=== PATIENT | female | born 1950 | race Caucasian/White ===

== ENCOUNTER 2020-06-19 04:29 | Emergency (ER) | payer MEDICARE, OTHER ==
[~2020-06-19] VITALS: Ht 167.6 cm; Wt 59.0 kg
[~2020-06-19 04:29] MED LIST: ALENDRONATE SOD70 MG PO; CARDIZEM CD240 MG PO; CLONAZEPAM 0.50.5 M1 PO; NIACIN 100MG T100 M1 PO; REQUIP 0.25 M0.25 MG PO; SINEMET 10-1001 EAC1 PO; TOPROL XL25 MG PO; VIT C-ROSE HIP500 MG PO
[2020-06-19] MEDS ORDERED: ASA81BEC PO (04:35)
[2020-06-19] MEDS ORDERED: ACIDOPHILUS1 EAC3 PO (04:35)
[2020-06-19] MEDS ORDERED: DILTIAZEM ER180 M2 PO (04:35)
[2020-06-19] MEDS ORDERED: COMTAN200 MG PO (04:36)
[2020-06-19] MEDS ORDERED: ESCITALOPRA5 MG/5 ML PO (04:36)
[2020-06-19] MEDS ORDERED: MELATONIN3 M1 PO (04:36)
[2020-06-19] MEDS ORDERED: MIRALAX119 GM PO (04:37)
[2020-06-19] MEDS ORDERED: ZANAFLEX2 M1 PO (04:37)
[2020-06-19] MEDS ORDERED: ONE-A-DAY WOMENS PO (04:37)
[2020-06-19] MEDS ORDERED: VITAMIN B-121000 MC2 SUBLING (04:38)
[2020-06-19] MEDS ORDERED: VITAMIN D31250 MCG PO (04:38)
[2020-06-19] MEDS ORDERED: MILK OF MA400 MG/5 M PO (04:39)
[2020-06-19] MEDS ORDERED: MAPAP325 MG PO (04:39)
[2020-06-19 04:48] LABS: URINE BILIRUBIN NEGATIVE (Negative); URINE BLOOD NEGATIVE (Negative); URINE CLARITY CLEAR; URINE COLOR DARK YELLOW; URINE GLUCOSE-RANDOM NEGATIVE (Negative); URINE KETONES NEGATIVE (Negative); URINE LEUKOCYTES-REFLEX NEGATIVE (Negative); URINE NITRITE-REFLEX NEGATIVE (Negative); URINE PROTEIN NEGATIVE (Negative); URINE UROBILINOGEN 0.2 E.U./dl (0.2-1.0)
[2020-06-19 05:17] LABS: ABSOLUTE EOSINOPHILS 0.1 thou/uL (0.0-0.7); ABSOLUTE LYMPHOCYTES 1.9 thou/uL (0.8-5.3); ABSOLUTE MONOCYTES 0.5 thou/uL (0.0-1.2); ABSOLUTE NEUTROPHILS 2.5 thou/uL (1.6-8.1); BASOPHILS 0.9 %; EOSINOPHILS 2.9 %; HEMATOCRIT 40.6 % (37.0-47.0); HEMOGLOBIN 13.4 gm/dL (12.0-15.0); LYMPHOCYTES 37.5 %; MCH 31.8 pg (26.0-34.0); MCV 96.2 fL (80.0-100.0); MPV 7.9 fl. (7.2-11.1); NUCLEATED RBCS 0 /100WBC; PLATELET COUNT* 198 thou/uL (150-400); POLYS 48.7 %; RBC 4.22 mil/uL (4.20-5.00); RDW-CV 14.2 % (10.5-14.5); WBC 5.2 thou/uL (4.0-11.0)
[2020-06-19 05:28] LABS: CALCIUM 9.1 mg/dL (8.5-10.1); CREATININE 0.8 mg/dL (0.6-1.3); POTASSIUM 4.2 mmol/L (3.5-5.1)
[2020-06-19 05:29] LABS: PROTIME 10.4 Seconds (9.20-11.50)
[2020-06-19 05:32] LABS: ALBUMIN 3.7 g/dL (3.4-5.0); MAGNESIUM 2.3 mg/dL (1.8-2.4); TOTAL BILIRUBIN 0.3 mg/dL (<0.1-1.0); TOTAL PROTEIN 6.8 g/dL (6.4-8.2)
[2020-06-19 06:50] VITALS: BP 144/74
--- NOTE | 2020-06-19 16:00 | EKG ---
[place] [address] ELECTROCARDIOGRAM REPORT Name: ARNIE MATAMOROS Room: [facility]#: [id number] Admission: 06/19/20 Attend Phys: Discharge: 06/19/20 Date of : 54 Date of Service: 06/19/20443 Report #: [id number] THIS REPORT FOR: //name// [facility] ED Test Date: 2020-06-19 Test Time: 04:44:19 Pat Name: ARNIE MATAMOROS Department: Room: Gender: F Mold Technician: : 1950 Requested By: Annemarie Hernandez Order Number: [id number] MD: Olegario Atkinson Measurements Intervals [place] Rate: 63 P: IN: QRS: 21 QRSD: 139 T: 39 QT: 431 QTc: 442 Interpretive Statements Sinus rhythm Low voltage throughout Baseline wander in lead(s) V3 No previous ECG available for comparison Electronically Signed On 06-19-2020 16:00:42 [employer] by Olegario Atkinson [email or web address] <ELECTRONICALLY SIGNED> By: Olegario Atkinson MD, [facility] 06/19/20 [facility] [place][note 2] [facility] 044 Olegario Atkinson MD, FACC /EPI
== END 2020-06-19 06:51 | disposition home or self-care (01) ==
LOC: M.ERS 04:29
PROVIDERS: Emergency Medicine
DX: M54.2 Cervicalgia (principal); Z20.828 Contact with and (suspected) exposure to other viral communicable diseases; M54.5 Low back pain; G25.81 Restless legs syndrome; Z79.899 Other long term (current) drug therapy; Z79.82 Long term (current) use of aspirin; Z86.73 Personal history of transient ischemic attack (TIA), and cerebral infarction without residual deficits; W06.XXXA Fall from bed, initial encounter; Y93.89 Activity, other specified; Y92.89 Other specified places as the place of occurrence of the external cause; Y99.9 Unspecified external cause status

== ENCOUNTER 2021-04-15 22:55 | Inpatient (IN) | payer MEDICARE, OTHER ==
[~2021-04-15] VITALS: Ht 165.1 cm; Wt 59.0 kg
[~2021-04-15 22:55] MED LIST changes: +ACIDOPHILUS1 EAC3 PO; +ASA81BEC PO; +COMTAN200 MG PO; +DILTIAZEM ER180 M2 PO; +ESCITALOPRA5 MG/5 ML PO; +MAPAP325 MG PO; +MELATONIN3 M1 PO; +MILK OF MA400 MG/5 M PO; +MIRALAX119 GM PO; +ONE-A-DAY WOMENS PO; +VITAMIN B-121000 MC2 SUBLING; +VITAMIN D31250 MCG PO; +ZANAFLEX2 M1 PO
[2021-04-15 23:00] VITALS: BP 166/78
[2021-04-15 23:47] LABS: ABSOLUTE LYMPHOCYTES 1.8 thou/uL (0.8-5.3); MCHC 33.4 g/dL (28.0-37.0)
[2021-04-15 23:49] LABS: ABSOLUTE EOSINOPHILS 0.2 thou/uL (0.0-0.7); ABSOLUTE MONOCYTES 0.6 thou/uL (0.0-1.2); ABSOLUTE NEUTROPHILS 3.6 thou/uL (1.6-8.1); BASOPHILS 0.3 %; CALCIUM 9.1 mg/dL (8.5-10.1); CREATININE 0.7 mg/dL (0.6-1.3); EOSINOPHILS 3.2 %; HEMATOCRIT 37.9 % (37.0-47.0); HEMOGLOBIN 12.7 gm/dL (12.0-15.0); LYMPHOCYTES 29.1 %; MCH 32.6 pg (26.0-34.0); MCV 97.4 fL (80.0-100.0); MONOCYTES 9.7 %; MPV 7.8 fl. (7.2-11.1); NUCLEATED RBCS 0 /100WBC; PLATELET COUNT* 183 thou/uL (150-400); POLYS 57.7 %; POTASSIUM 3.9 mmol/L (3.5-5.1); RBC 3.89 mil/uL (4.20-5.00); RDW-CV 13.7 % (10.5-14.5); WBC 6.3 thou/uL (4.0-11.0)
[2021-04-15 23:54] LABS: ALBUMIN 3.7 g/dL (3.4-5.0); TOTAL BILIRUBIN 0.3 mg/dL (<0.1-1.0); TOTAL PROTEIN 6.9 g/dL (6.4-8.2)
[2021-04-16 02:38] LABS: URINE BILIRUBIN NEGATIVE (Negative); URINE BLOOD NEGATIVE (Negative); URINE CLARITY CLEAR; URINE COLOR YELLOW; URINE GLUCOSE-RANDOM NEGATIVE (Negative); URINE KETONES TRACE (Negative); URINE LEUKOCYTES-REFLEX NEGATIVE (Negative); URINE NITRITE-REFLEX NEGATIVE (Negative); URINE PROTEIN NEGATIVE (Negative); URINE SPECIFIC GRAVITY >= 1.030 (1.005-1.030); URINE UROBILINOGEN 0.2 E.U./dl (0.2-1.0)
[2021-04-16 07:20] VITALS: BP 132/58
[2021-04-16 11:36] VITALS: BP 153/61
[2021-04-16 15:20] VITALS: BP 155/76
--- NOTE | 2021-04-16 16:42 | EKG ---
[place] [address] ELECTROCARDIOGRAM REPORT Name: ARNIE MATAMOROS Room: [address]#: [id number] Admission: 04/16/21 Attend Phys: Kay Wolf, Discharge: Date of : 54 Date of Service: 04/15/216 Report #: [id number] THIS REPORT FOR: //name// [facility] ED Test Date: 2021-04-15 Test Time: 23:06:04 Pat Name: ARNIE MATAMOROS Department: Room: [facility] Gender: F Abstract Maker: : 1950 Requested By: Jovan Casper Order Number: [id number] MD: Reid Nunez Measurements Intervals [place] Rate: 67 P: 23 [place]: 170 QRS: 4 QRSD: 102 T: 19 QT: 410 QTc: 433 Interpretive Statements Sinus rhythm Compared to ECG 06/19/2020 04:44:19 No significant changes Electronically Signed On 04-16-2021 16:42:07 DIRECT SALES CONSULTANT by Reid Nunez [email or web address] <ELECTRONICALLY SIGNED> By: Reid Nunez MD, [facility] 04/16/21 1642 05 05 Reid Nunez MD, [facility] /EPI
[2021-04-16 19:45] VITALS: BP 145/52
[2021-04-16 20:13] VITALS: BP 145/52
[2021-04-16 21:00] VITALS: BP 159/63
[2021-04-17 01:00] VITALS: BP 115/53
[2021-04-17 05:18] LABS: HEMATOCRIT 37.7 % (37.0-47.0); HEMOGLOBIN 12.5 gm/dL (12.0-15.0); MCH 32.5 pg (26.0-34.0); MCHC 33.2 g/dL (28.0-37.0); MCV 97.9 fL (80.0-100.0); MPV 7.8 fl. (7.2-11.1); RBC 3.85 mil/uL (4.20-5.00); RDW-CV 13.7 % (10.5-14.5); WBC 6.4 thou/uL (4.0-11.0)
[2021-04-17 06:01] LABS: ALBUMIN 3.3 g/dL (3.4-5.0); CALCIUM 8.9 mg/dL (8.5-10.1); CREATININE 0.5 mg/dL (0.6-1.3); MAGNESIUM 2.3 mg/dL (1.8-2.4); POTASSIUM 3.7 mmol/L (3.5-5.1); TOTAL BILIRUBIN 0.7 mg/dL (<0.1-1.0); TOTAL PROTEIN 6.5 g/dL (6.4-8.2)
[2021-04-17 13:51] VITALS: BP 136/63
[2021-04-17 16:00] VITALS: BP 132/57
[2021-04-17 20:00] VITALS: BP 112/44
[2021-04-18 08:00] VITALS: BP 141/55
[2021-04-18 12:38] VITALS: BP 139/70
[2021-04-18 18:10] VITALS: BP 136/62
[2021-04-18 20:00] VITALS: BP 110/60
[2021-04-19 08:23] VITALS: BP 132/47
[2021-04-19 09:21] VITALS: BP 132/47
[2021-04-19] MEDS ORDERED: TRAMADOL 50 MG50 MG PO ×2 (09:30→09:34)
[2021-04-19] MEDS ORDERED: MIRALAX17 GM PO (09:30)
== END 2021-04-19 14:40 | disposition home health service (06) | DRG 184 ==
LOC: M.ERS 22:55 → M.TBA-ER 04-16 03:18 → M.2W 04-16 21:23
PROVIDERS: Physician Assistant; ADMIT Internal Medicine; ATTEND Internal Medicine
DX: S22.42XA Multiple fractures of ribs, left side, initial encounter for closed fracture (principal); S27.0XXA Traumatic pneumothorax, initial encounter; G25.81 Restless legs syndrome; G20 Parkinson's disease; F02.80 Dementia in other diseases classified elsewhere, unspecified severity, without behavioral disturbance, psychotic disturbance, mood disturbance, and anxiety; W18.39XA Other fall on same level, initial encounter; Y93.89 Activity, other specified; Y92.89 Other specified places as the place of occurrence of the external cause; Y99.8 Other external cause status; K59.00 Constipation, unspecified; Z20.822 Contact with and (suspected) exposure to COVID-19; Z86.73 Personal history of transient ischemic attack (TIA), and cerebral infarction without residual deficits